=== PATIENT | female | born 1965 | race Caucasian/White ===

== ENCOUNTER 2019-07-26 16:07 | Inpatient (IN) | payer OTHER ==
[~2019-07-26] VITALS: Ht 165.1 cm; Wt 90.9 kg
[~2019-07-26 16:07] MED LIST: ADVA115A INH; FLUTICASONE INH; LISI10TA15 PO; PRED20TA PO; PROAAER10 IN; SALMETEROL INH; ZITH250T PO
[2019-07-26 16:44] LABS: BASO # 0.1 10^3/uL (0.0-0.2); BASO % 0.6 % (0.0-1.0); EOS # 0.6 10^3/uL (0.0-0.5); EOS % 3.8 % (0.0-3.0); HEMATOCRIT 50.1 % (36.0-47.0); HEMOGLOBIN 16.2 g/dl (12.0-15.5); LYMPH # 4.3 10^3/uL (1.5-5.0); LYMPH % 28.8 % (24.0-44.0); MEAN CORPUSCULAR HEMOGLOBIN 29.7 pg (27.0-33.0); MEAN CORPUSCULAR HGB CONC 32.3 g/dl (32.0-36.5); MEAN CORPUSCULAR VOLUME 91.8 fl (80.0-96.0); MONO # 0.6 10^3/uL (0.0-0.8); MONO % 3.7 % (0.0-5.0); NEUTROPHILS # 9.2 10^3/uL (1.5-8.5); PLATELET COUNT, AUTOMATED 408 10^3/uL (150-450); RED BLOOD COUNT 5.46 10^6/uL (4.00-5.40); WHITE BLOOD COUNT 14.9 10^3/uL (4.0-10.0)
[2019-07-26] MEDS: COMBIVENT RESPIMAT 100-20MCG INHALER 4GM INH SCH ×4 (16:54→17:19)
[2019-07-26 16:56] LABS: INR 1.03; PARTIAL THROMBOPLASTIN TIME 24.9 SECONDS (25.0-38.4); PROTHROMBIN TIME 13.2 SECONDS (11.8-14.0)
[2019-07-26 17:00] LABS: D-DIMER QUANT 325.56 ng/ml (<500)
[2019-07-26 17:10] LABS: ALT/SGPT 64 U/L (12-78); BILIRUBIN,TOTAL 0.3 MG/DL (0.2-1.0); BLOOD UREA NITROGEN 9 MG/DL (7-18); C REACTIVE PROTEIN QUANTITATIV < 0.30 MG/DL (0.00-0.30); CALCIUM LEVEL 8.8 MG/DL (8.5-10.1); CARBON DIOXIDE LEVEL 20 MEQ/L (21-32); CHLORIDE LEVEL 106 MEQ/L (98-107); CK-MB VALUE MASS 1.7 NG/ML (<3.6); CPK CREATINE PHOSPHOKINASE 81 U/L (26-192); FERRITIN 164 NG/ML (8-252); GLOMERULAR FILTRATION RATE > 60.0 (>51); GLUCOSE, FASTING 208 MG/DL (70-100); LDH LACTATE DEHYDROGENASE 279 U/L (84-246); POTASSIUM SERUM 4.7 MEQ/L (3.5-5.1); SODIUM LEVEL 137 MEQ/L (136-145); TOTAL PROTEIN 7.6 GM/DL (6.4-8.2); TROPONIN I 0.14 NG/ML (< 0.10)
--- NOTE | 2019-07-26 17:18 | REP ---
Portable chest x-ray: Single view. History: Tavares virus evaluation. Comparison chest x-ray: August 02, 2014. Findings: Monitoring electrodes overlie the chest along with oxygen delivery tubing. The lungs are symmetrically aerated. No focal infiltrate is appreciated. Heart is not enlarged. The pleural angles are sharp. No bony abnormality is seen. Impression: No infiltrate seen. No active cardiopulmonary disease. A negative chest x-ray does not exclude CoVID19 infection. Electronically Signed by William Lynch MD 07/26/2019 05:10 P
[2019-07-26] MEDS ORDERED: ACET-683 PO (17:38)
[2019-07-26] MEDS ORDERED: PROAAER10 INH (17:38)
[2019-07-26] MEDS ORDERED: COUG1LOZ8 MT (17:38)
[2019-07-26] MEDS ORDERED: IBUP200T45 PO (17:38)
[2019-07-26] MEDS ORDERED: TRIA25CR TOP (17:38)
[2019-07-26] MEDS ORDERED: ALBU83IN INH (17:38)
[2019-07-26] MEDS ORDERED: LISI10TA4 PO (17:38)
[2019-07-26] MEDS ORDERED: NS 1,000 ML IV SCH ×2 (17:46→20:00)
--- NOTE | 2019-07-26 18:33 | ECGEPIP ---
[facility] - ED Test Date: 2019-07-26 Pat Name: PHILLIP SULTANA Department: Room: - Gender: Female [employer] Operator: uri : 1965 Requested By: Christina Cortés Order Number: [id number] Reading MD: Christina Cortés Measurements Intervals [place] Rate: 80 P: 41 [place]: 140 QRS: 8 QRSD: 73 T: -9 QT: 348 QTc: 402 Interpretive Statements SINUS RHYTHM SEPTAL MYOCARDIAL INFARCTION, OF INDETERMINATE AGE NONSPECIFIC ST T WAVE CHANGES CW 08/02/[address] T WAVE CHANGES Q NOW IN LEAD III Electronically Signed on 07-26-2019 18:33:20 EDT by Christina Cortés
[2019-07-26] MEDS ORDERED: IBUPROFEN 400 MG TAB PO PRN (19:15)
[2019-07-26] MEDS ORDERED: ALBUTEROL SULFATE 2.5 MG/0.5 ML INH NEB SOLN NEB PRN (19:15)
[2019-07-26] MEDS ORDERED: guaiFENesin DM LIQ 10ML UD PO PRN (19:15)
[2019-07-26] MEDS ORDERED: ACETAMINOPHEN 500 MG TAB PO PRN (19:15)
[2019-07-26] MEDS ORDERED: cefTRIAXone SOD 1 GM in D5W MINI-BAG PLUS 50 ML IV SCH (20:00)
[2019-07-26] MEDS: IPRATROPIUM 0.02% SOLN 0.5MG/2.5 ML NEB NEB SCH ×2 (21:46→23:54)
[2019-07-26 22:00] VITALS: BP 117/85
[2019-07-26] MEDS ORDERED: ENOXAPARIN 40MG/0.4ML SYRINGE (J1650 PER 10MG) SC ONE (22:00)
[2019-07-27] MEDS: methylPREDNISolone INJ 125 MG/2 ML VIAL (J2930) IV SCH ×2 (00:02→07:52)
[2019-07-27 02:00] VITALS: BP 110/86
[2019-07-27] MEDS: IPRATROPIUM 0.02% SOLN 0.5MG/2.5 ML NEB NEB SCH ×2 (02:55→07:21)
[2019-07-27 04:06] VITALS: O2SAT 94
[2019-07-27 06:00] VITALS: BP 120/86
[2019-07-27 06:03] LABS: HEMATOCRIT 46.8 % (36.0-47.0); HEMOGLOBIN 15.6 g/dl (12.0-15.5); MEAN CORPUSCULAR HEMOGLOBIN 29.7 pg (27.0-33.0); MEAN CORPUSCULAR HGB CONC 33.3 g/dl (32.0-36.5); PLATELET COUNT, AUTOMATED 309 10^3/uL (150-450); RED BLOOD COUNT 5.26 10^6/uL (4.00-5.40); WHITE BLOOD COUNT 8.4 10^3/uL (4.0-10.0)
[2019-07-27 06:17] LABS: BLOOD UREA NITROGEN 10 MG/DL (7-18); CALCIUM LEVEL 9.3 MG/DL (8.5-10.1); CARBON DIOXIDE LEVEL 23 MEQ/L (21-32); CHLORIDE LEVEL 110 MEQ/L (98-107); CREATININE FOR GFR 0.64 MG/DL (0.55-1.30); GLOMERULAR FILTRATION RATE > 60.0 (>51); GLUCOSE, FASTING 137 MG/DL (70-100); POTASSIUM SERUM 4.5 MEQ/L (3.5-5.1); SODIUM LEVEL 140 MEQ/L (136-145)
[2019-07-27 06:18] LABS: CHOLESTEROL RISK RATIO 4.265 (<5)
[2019-07-27 06:27] LABS: HEMOGLOBIN A1c 5.7 %
--- NOTE | 2019-07-27 07:21 | HPE ---
DATE OF ADMISSION: 07/26/2019 CHIEF COMPLAINT: Shortness of breath. HISTORY OF PRESENTING ILLNESS: This is a 53-year-old female with history of chronic obstructive pulmonary disease (COPD). Prior admission was 08/02/2014. Not oxygen or steroid dependent. Presents to emergency room with 2-day history of shortness of breath despite using her puffer nebulizers every 4-6 hours for the past 2 days. She otherwise denies any fever. Has a cough with clear sputum. No chills, nausea, vomiting, diarrhea, abdominal pain, chest pain, pressure, tightness, lightheadedness, dizziness. Denies any headache, changes in vision, sore throat, or sick contact. Patient has not had any recent travel. Denies any muscle, joint pains. She does have a pinched nerve in the cervical spine with worsening radicular pain to the right arm for the past 1 month with decrease in strength and dropping things with her fingers. She has had no change in appetite, weight gain, weight loss, and presents for evaluation. In the emergency room (ER), she was afebrile at 97 with wheezing and decreased breath sounds, prolonged expirations, requiring nebulizer treatment. She was in tripod positioning, and respiratory rate was 40 with 3-4 word dyspnea. She was given 4 liters oxygen by the ambulance and was saturating 94-98%. She otherwise denies any dysuria, urgency, frequency, fever, chills, flank pain. No pets at home. PAST MEDICAL HISTORY: 1. COPD. 2. Hypertension. PAST SURGICAL HISTORY: 1. (C) section. 2. Tonsillectomy. ALLERGIES: No known drug allergies. HOME MEDICATIONS: - albuterol ProAir HFA two puffs inhaled four times a day - triamcinolone topically as needed - cough drops as needed - acetaminophen 1 gram every 6 hours as needed - ibuprofen 200 mg tablet, 400 mg every 6 hours as needed - lisinopril 10 mg daily SOCIAL HISTORY: Lives alone. Previously worked as a surgical assistant. Her daughter, Ciara, is her health care proxy, . Patient does not want to be resuscitated and did not want any cardiopulmonary resuscitation (CPR) or chest compressions, intubation, or mechanical ventilation. She is DO NOT RESUSCITATE, DO NOT INTUBATE. Denies alcohol or recreational drug use. Previously smoked two packs per day for several years, down to five cigarettes a day. FAMILY HISTORY: Father , age 31, due to a fire. Mother alive, age 72, coronary artery disease (CAD), myocardial infarction (ND), hypertension, stroke. One brother, age 58. One sister alive with lung cancer with metastatic lesions to the brain. REVIEW OF SYSTEMS: Per history of presenting illness (HPI). 12-point system otherwise negative. PHYSICAL EXAMINATION: Temperature 97, pulse 84, respiratory rate 38, blood pressure 120/90, 94% on 4 liters nasal cannula. GENERALLY: Patient is in tripod position with moderate respiratory distress, 3- 5 word conversational dyspnea. No jugular venous distention (JVD). No thyromegaly. No cervical lymphadenopathy. Dry mucous membranes. LUNGS: Diminished breath sounds. Prolonged expiration. Bilateral expiratory wheezing. HEART: S1, S2, sinus tachycardia. ABDOMEN: Is soft, nontender, and nondistended. EXTREMITIES: No cyanosis, clubbing, or pitting edema. White count 14.9, hemoglobin 16, hematocrit 50, platelet count of 408, 62% neutrophils. Sodium 137, potassium 4.7, chloride 106, bicarbonate 20, BUN 9, creatinine 0.9, glucose of 208, lactic acid 3.8. Repeat lactic acid pending. Calcium 8.8, ferritin 164, total bilirubin 0.3, AST 87, ALT 64, alkaline phosphatase 105, LDH 279, total CK 81, MB fraction 1.7, troponin 0.14, CRP less than 0.3, total protein 7.6, albumin of 4. Procalcitonin is pending. Blood culture pending. Respiratory panel negative. Sputum culture pending. EKG: Sinus rhythm, ventricular rate of 80, septal ND age indeterminate, VT interval 140, QRS 73, QT 348, QTc 384. Chest x-ray 07/26/2019: No infiltrate. No acute cardiopulmonary disease. ASSESSMENT AND PLAN: 53-year-old female, DO NOT RESUSCITATE, DO NOT INTUBATE according to her wishes. Health care proxy is her daughterCiara, phone number [phone]. Presents to emergency room with 2-day history of worsening shortness of breath unalleviated by inhalers at home every 4 hours. No fever with a cough productive of clear sputum without chills, nausea, vomiting, diarrhea, headaches, changes in vision, or sore throat. Patient was found to be in moderate distress, tachycardic, tachypneic, with bilateral wheezing, decreased air entry, and admitted for chronic obstructive pulmonary disease exacerbation. Patient had a slight white count. Chest x-ray is negative. Sputum culture is pending. Respiratory panel is negative. COVID-19 negative. 1. Chronic obstructive pulmonary disease exacerbation. Currently on intravenous (IV) Solu-Medrol 80 IV every 8 hourly, nebulizers every 4 hours and every 1 hour as needed, ceftriaxone intravenously. Await sputum culture. No acute infiltrate on the chest x-ray. Keep oxygen saturations at 88-92%. Cycle cardiac markers. 2. Troponin leak with abnormal EKG. Troponin leak is most likely due to COPD and possible pulmonary hypertension with abnormal EKG showing septal changes, age indeterminate. Reasonable to continue with smoking cessation counseling and if patient develops chest pain, to obtain an echocardiogram to rule out septal wall motion abnormalities. Cycle cardiac markers every 8 hourly for now. 3. Hypertension, controlled. Patient had lactic acidosis and required IV fluids initially. She will be kept on lisinopril with holding parameters for systolic pressure less than 120. 4. Right hand weakness. Patient has history of cervical radiculopathy. May benefit from MRI of the cervical spine as outpatient. If worsening symptoms, may consider doing inpatient evaluation. 5. Active tobacco abuse. Patient has been counseled against smoking. Says that she only smokes about 5-10 cigarettes a day now. 6. Obesity. Body mass index (BMI) of 33.4. Check for metabolic syndrome. Chest A1c in the morning and lipid panel. Continue on lisinopril for blood pressure, providing that her mean arterial pressure (MAP) remains above 70. 7. Deep venous thrombosis (DVT) prophylaxis. With Lovenox. CODE STATUS: Patient says she does not want chest compressions, intubation, or mechanical invasion. DO NOT RESUSCITATE, DO NOT INTUBATE. Health care proxy is Ciara, her daughter, . [facility]Dutch
[2019-07-27] MEDS: PANTOPRAZOLE 40MG TAB (PROTONIX) PO SCH (07:52)
[2019-07-27] MEDS: lisinopriL 10 MG TAB PO SCH (07:56)
[2019-07-27 08:00] VITALS: O2SAT 95
[2019-07-27] MEDS ORDERED: ENOXAPARIN 40MG/0.4ML SYRINGE (J1650 PER 10MG) SC SCH (09:00)
[2019-07-27] MEDS: IPRATROPIUM 0.5MG/ALBUTEROL 2.5MG INH SOL UD 3ML (DUONEB)(J7620) NEB SCH ×4 (11:06→23:06)
--- NOTE | 2019-07-27 11:52 | IPNPDOC ---
Text Note Date of Service The patient was seen on 07/27/19. NOTE SUBJECTIVE: Patient seen and examined this morning at bedside. She is a 53-year- old female admitted overnight secondary to a COPD exacerbation. She states that the past 2 days she had has had worsening wheezing and shortness of breath using her rescue inhaler every 4-6 hours without much help. She does not follow with a looseleaf binder coverer and is not on any maintenance therapy. She states she has been trying to cut back on her smoking and is down to less than 5 per day. She denies any fever, chills, chest pain, abdominal pain, nausea, vomiting, recent sick contacts. OBJECTIVE: PHYSICAL EXAM: Vitals: (see below) General: No acute distress, sitting up in bed. HEENT: Normocephalic, atraumatic. EOMI. No scleral icterus. Moist mucous membranes. No pharyngeal erythema or uvular deviation. Neck: No JVD, lymphadenopathy, or thyromegaly. Cardiac: RRR, Normal S1 and S2, No murmurs, gallops, rubs. Pulm: Clear to auscultation b/l. Symmetric thorax. Extensive inspiratory and expiratory wheezes appreciated throughout lung pop, no crackles, rhonchi. Abd: Bowel Sounds present. Abdomen is soft, non-tender, non-distended. No guarding, rebound tenderness, or rigidity. Ext: No edema or cyanosis Neuro: No focal neuro deficits Psych: Normal mood and affect. LABORATORY DATA, MICROBIOLOGY: Please see below. IMAGING STUDIES: ASSESSMENT AND PLAN: #. COPD exacerbation Keep oxygen titrated to 80-92%, added DuoNeb treatments scheduled every 4 hours, discontinuing Rocephin based on her history, physical, lab work, and chest x-ray there are no signs of infection, changed IV steroids to 40 mg every 8 hours from 80 mg. If she continues to improve may be able to change to oral steroids tomorrow. Should be discharged home with follow-up to a pulmonology office if her PCP is uncomfortable with further management as well as a maintenance inhaler #. Hypertension Controlled, continue home lisinopril with holding parameters #. Right hand weakness 2/2 cervical radiculopathy Stable, no need for intervention at this time unless symptoms worsen, okay to follow up outpatient as needed. #. Tobacco use disorder Patient uninterested in nicotine replacement therapy as she feels like this makes her want to smoke more, she says she is continuing to quit and cut down on smoking and is at less than 5 cigarettes per day. #. Polycythemia Given patient's body habitus there may be underlying RUBEN versus obesity hypoventilation syndrome. Follow up outpatient for further workup. #. Obesity Complicating care and management, A1c of 5.7 significant for borderline impaired fasting glucose. DVT prophylaxis: Lovenox CODE STATUS: DNR/DNI VS,Fishbone, I+O VS, Fishbone, I+O Laboratory Tests 07/26/19 16:31 07/27/19 05:28 Vital Signs Date Time Temp Pulse Resp B/P (MAP) Pulse Ox O2 Delivery O2 Flow Rate FiO2 07/27/19 08:00 95 Room Air 07/27/19 07:56 138/90 07/27/19 06:00 98.0 77 19 07/26/19 18:30 4.0 I&O- Last 24 Hours up to 6 AM 07/27/19 06:00 Intake Total 2800 ml Balance 2800 ml GME ATTESTATION GME ATTESTATION My faculty preceptor for this patient encounter was physically present during the encounter and was fully available. All aspects of the patient interview, examination, medical decision making process, and medical care plan development were reviewed and approved by the faculty preceptor. The faculty preceptor is aware and concurs with the plan as stated in the body of this note and will attest to such by his/her cosignature. ROBBY SEVILLA DO Jul 27, 2019 11:52
[2019-07-27 14:00] VITALS: BP 115/82
[2019-07-27] MEDS: methylPREDNISolone INJ 40 MG/1 ML VIAL (J2920) IV SCH (16:26)
[2019-07-27] MEDS: ENOXAPARIN 40MG/0.4ML SYRINGE (J1650 PER 10MG) SC SCH (21:15)
[2019-07-27 22:00] VITALS: BP 117/81
[2019-07-28] MEDS: methylPREDNISolone INJ 40 MG/1 ML VIAL (J2920) IV SCH ×3 (00:01→15:28)
[2019-07-28] MEDS: IPRATROPIUM 0.5MG/ALBUTEROL 2.5MG INH SOL UD 3ML (DUONEB)(J7620) NEB SCH ×4 (03:00→19:15)
[2019-07-28 05:58] VITALS: O2SAT 92
[2019-07-28 06:00] VITALS: BP 134/86
[2019-07-28 06:51] LABS: HEMOGLOBIN 14.6 g/dl (12.0-15.5); MEAN CORPUSCULAR HEMOGLOBIN 30.9 pg (27.0-33.0); MEAN CORPUSCULAR VOLUME 91.1 fl (80.0-96.0); PLATELET COUNT, AUTOMATED 316 10^3/uL (150-450); RED BLOOD COUNT 4.72 10^6/uL (4.00-5.40)
[2019-07-28 07:19] LABS: BLOOD UREA NITROGEN 17 MG/DL (7-18); CALCIUM LEVEL 9.3 MG/DL (8.5-10.1); CARBON DIOXIDE LEVEL 23 MEQ/L (21-32); CHLORIDE LEVEL 109 MEQ/L (98-107); CREATININE FOR GFR 0.83 MG/DL (0.55-1.30); GLOMERULAR FILTRATION RATE > 60.0 (>51); GLUCOSE, FASTING 144 MG/DL (70-100); POTASSIUM SERUM 4.2 MEQ/L (3.5-5.1); SODIUM LEVEL 142 MEQ/L (136-145)
[2019-07-28 08:00] VITALS: O2SAT 93
[2019-07-28] MEDS: PANTOPRAZOLE 40MG TAB (PROTONIX) PO SCH (08:00)
[2019-07-28] MEDS: lisinopriL 10 MG TAB PO SCH (08:02)
[2019-07-28] MEDS ORDERED: ADVA230A INH (10:45)
[2019-07-28] MEDS ORDERED: PROAAER10 INH (10:45)
[2019-07-28 14:00] VITALS: BP 117/71
--- NOTE | 2019-07-28 14:30 | IPNPDOC ---
Text Note Date of Service The patient was seen on 07/28/19. NOTE SUBJECTIVE: 53 year old female admitted for COPD exacerbation. Patient seen and examined this morning at bedside, no acute events overnight. She denies any fever, chills, chest pain, worsening shortness of breath, cough, abdominal pain, nausea, vomiting. She feels significantly better today and required no oxygen overnight. OBJECTIVE: PHYSICAL EXAM: Vitals: (see below) General: No acute distress, sitting up in bed. HEENT: Normocephalic, atraumatic. EOMI. No scleral icterus. Moist mucous membranes. No pharyngeal erythema or uvular deviation. Neck: No JVD, lymphadenopathy, or thyromegaly. Cardiac: RRR, Normal S1 and S2, No murmurs, gallops, rubs. Pulm: Clear to auscultation b/l. Symmetric thorax. Faint end expiratory wheezes, no inspiratory wheezes, no crackles, rhonchi. Abd: Bowel Sounds present. Abdomen is soft, non-tender, non-distended. No guarding, rebound tenderness, or rigidity. Ext: No edema or cyanosis Neuro: No focal neuro deficits Psych: Normal mood and affect. LABORATORY DATA, MICROBIOLOGY: Please see below. IMAGING STUDIES: ASSESSMENT AND PLAN: #. COPD exacerbation Oxygen requirements decreasing, patient doing well on room air, changed n ebulizer treatments to every 6 hours, added Advair inhaler. Will DC IV steroids and start by mouth steroids tomorrow. #. Hypertension Controlled, continue home lisinopril with holding parameters #. Right hand weakness 2/2 cervical radiculopathy Stable, no need for intervention at this time unless symptoms worsen, okay to follow up outpatient as needed. #. Tobacco use disorder Patient uninterested in nicotine replacement therapy as she feels like this makes her want to smoke more, she says she is continuing to quit and cut down on smoking and is at less than 5 cigarettes per day. #. Obesity Complicating care and management, A1c of 5.7 significant for borderline impaired fasting glucose. #. Polycythemia on presentation now resolved - secondary polycythemia adn relative polycythemia -due to a combination of hypoxia, COPD exacerbation , smoking. DVT prophylaxis: Lovenox CODE STATUS: DNR/DNI Disposition: Anticipate DC tomorrow. VS,Fishbone, I+O VS, Fishbone, I+O Laboratory Tests 07/28/19 05:59 Vital Signs Date Time Temp Pulse Resp B/P (MAP) Pulse Ox O2 Delivery O2 Flow Rate FiO2 07/28/19 14:00 97.6 83 18 117/71 (86) 94 Room Air 07/26/19 18:30 4.0 I&O- Last 24 Hours up to 6 AM 07/28/19 06:00 Intake Total 1600 ml Output Total 1050 ml Balance 550 ml GME ATTESTATION GME ATTESTATION My faculty preceptor for this patient encounter was physically present during the encounter and was fully available. All aspects of the patient interview, examination, medical decision making process, and medical care plan development were reviewed and approved by the faculty preceptor. The faculty preceptor is aware and concurs with the plan as stated in the body of this note and will attest to such by his/her cosignature. ATTENDING NOTE I have independently interviewed and examined the patient at the bedside, and agree with the aforementioned management plans and physical findings as documented by my Resident Physician. ROBBY SEVILLA DO Jul 28, 2019 14:30 SHAHEED ZAPIEN MD Jul 30, 2019 11:48
[2019-07-28] MEDS: ADVAIR HFA 230/21MCG INHALER INH SCH ×2 (14:57→19:15)
[2019-07-28] MEDS: ENOXAPARIN 40MG/0.4ML SYRINGE (J1650 PER 10MG) SC SCH (20:47)
[2019-07-28 22:00] VITALS: BP 132/79; O2SAT 93
[2019-07-29] MEDS: IPRATROPIUM 0.5MG/ALBUTEROL 2.5MG INH SOL UD 3ML (DUONEB)(J7620) NEB SCH ×2 (01:28→07:25)
[2019-07-29 06:00] VITALS: BP 137/89
[2019-07-29 06:48] LABS: HEMATOCRIT 42.9 % (36.0-47.0); MEAN CORPUSCULAR HEMOGLOBIN 29.9 pg (27.0-33.0); MEAN CORPUSCULAR HGB CONC 32.6 g/dl (32.0-36.5); MEAN CORPUSCULAR VOLUME 91.5 fl (80.0-96.0); PLATELET COUNT, AUTOMATED 303 10^3/uL (150-450); RED BLOOD COUNT 4.69 10^6/uL (4.00-5.40); WHITE BLOOD COUNT 18.5 10^3/uL (4.0-10.0)
[2019-07-29 07:18] LABS: BLOOD UREA NITROGEN 16 MG/DL (7-18); CALCIUM LEVEL 9.1 MG/DL (8.5-10.1); CARBON DIOXIDE LEVEL 26 MEQ/L (21-32); CHLORIDE LEVEL 106 MEQ/L (98-107); CREATININE FOR GFR 0.73 MG/DL (0.55-1.30); GLOMERULAR FILTRATION RATE > 60.0 (>51); GLUCOSE, FASTING 84 MG/DL (70-100); POTASSIUM SERUM 3.9 MEQ/L (3.5-5.1); SODIUM LEVEL 140 MEQ/L (136-145)
[2019-07-29] MEDS: ADVAIR HFA 230/21MCG INHALER INH SCH (07:25)
[2019-07-29] MEDS: PANTOPRAZOLE 40MG TAB (PROTONIX) PO SCH (08:44)
[2019-07-29 08:45] VITALS: BP 139/93
[2019-07-29] MEDS: lisinopriL 10 MG TAB PO SCH (08:45)
[2019-07-29] MEDS ORDERED: PRED20TA PO (08:49)
--- NOTE | 2019-07-29 08:50 | DS.PDOC ---
Discharge Summary General Date of Admission Jul 26, 2019 at 19:08 Date of Discharge 07/29/2019 Attending Physician: SHAHEED ZAPIEN MD Discharge Summary PROCEDURES PERFORMED DURING STAY: none. DISCHARGE DIAGNOSES: 1. COPD exacerbation 2. Hypertension 3. Hypercholesterolemia 4. Obesity 5. Tobacco use 6. Cervical radiculopathy with right arm and hand weakness COMPLICATIONS/CHIEF COMPLAINT: Shortness of breath HISTORY OF PRESENT ILLNESS/HOSPITAL COURSE: 53-year-old female presented to ED with 2-day history of shortness of breath despite using her rescue inhaler every 4-6 hours for the past 2 days with associated cough productive of clear sputum after being out of her maintenance inhaler medication for the past month. She states her SOB became so severe she called EMS. In the ED, she was afebrile with wheezing, tachypnea, conversational dyspnea, decreased breath sounds, prolonged expirations, and tripoding requiring nebulizer therapy. 4 blood cultures, respiratory panel, and COVID19 PCR were all negative. Based on her history and physical exam she was admitted for a COPD exacerbation and started on steroids, rocephin empirically, and oxygen as needed with MDI inhaler treatments. On day 2 of hospitalization her oxygen requirements had decreased, rocephin was discontinued and she was started on nebulizer treatments with ongoing IV steroids. By day 3 she was feeling significantly better so nebulizer therapy was lengthened, she was off oxygen, and she was switched to oral steroids. On day of discharge her lungs were clear, patient felt comfortable to go leave, and she was sent home with LABA/ICS, Wixela, as a maintenance inhaler along with 3 more days of oral steroids to finish her course. DISCHARGE MEDICATIONS: Please see below. ALLERGIES: Please see below. Vitals: (see below) General: No acute distress, sitting up in bed. HEENT: Normocephalic, atraumatic. EOMI. No scleral icterus. Moist mucous membranes. No pharyngeal erythema or uvular deviation. Neck: No JVD, lymphadenopathy, or thyromegaly. Cardiac: RRR, Normal S1 and S2, No murmurs, gallops, rubs. Pulm: Clear to auscultation b/l. Symmetric thorax. no wheezes, crackles, or rhonchi. Abd: Bowel Sounds present. Abdomen is soft, non-tender, non-distended. No guarding, rebound tenderness, or rigidity. Ext: No edema or cyanosis Neuro: No focal neuro deficits Psych: Normal mood and affect. LABORATORY DATA: Please see below. IMAGIN07/26/2019 chest x-ray: No infiltrate seen. No active cardiopulmonary disease. PROGNOSIS: good ACTIVITY: [As tolerated]. DIET: As tolerated DISCHARGE PLAN: home DISCHARGE INSTRUCTIONS: 1. Please follow up with PCP in the next 1-2 weeks. 2. Please return to hospital if symptoms worsen. 3. Please complete steroid regimen. DISCHARGE CONDITION: [Stable]. TIME SPENT ON DISCHARGE: 35 minutes. Vital Signs/I&Os Vital Signs Date Time Temp Pulse Resp B/P (MAP) Pulse Ox O2 Delivery O2 Flow Rate FiO2 07/29/19 08:45 139/93 07/29/19 06:00 98.2 98 21 97 Room Air 07/26/19 18:30 4.0 I&O- Last 24 Hours up to 6 AM 07/29/19 06:00 Intake Total 1860 ml Balance 1860 ml Laboratory Data Labs 24H Laboratory Tests 2 07/29/19 06:06: Nucleated Red Blood Cells % (auto) 0.0, Anion Gap 8, Glomerular Filtration Rate > 60.0, Calcium Level 9.1 CBC/BMP Laboratory Tests 07/29/19 06:06 Microbiology Microbiology 07/26/19 Blood Culture - Preliminary, Resulted No Growth after 48 hours. All Specime... 07/26/19 Blood Culture - Preliminary, Resulted No Growth after 48 hours. All Specime... 07/26/19 Blood Culture - Preliminary, Resulted No Growth after 48 hours. All Specime... 07/26/19 Respiratory Virus Panel (PCR) ([facility]) - Final, Complete 07/26/19 Blood Culture - Preliminary, Resulted No Growth after 48 hours. All Specime... Discharge Medications Scheduled Fluticasone Propion/Salmeterol (Wixela 250-50 Inhub) 1 Each Blst.w.dev, 1 PUFF IH BID Lisinopril (Lisinopril) 10 Mg Tablet, 10 MG PO DAILY, (Reported) Prednisone (Prednisone) 20 Mg Tablet, 2 TAB PO DAILY Scheduled PRN Acetaminophen (Acetaminophen) 500 Mg Tablet, 1,000 MG PO Q6H PRN for PAIN, (Reported) Albuterol Sulf (Albuterol Sulfate) 2.5 Mg/3 Ml Vial.neb, 2.5 MG INH QID PRN for SOB/WHEEZING, (Reported) Albuterol Sulfate (Proair Hfa) 8.5 Gm Hfa.aer.ad, 2 PUFF INH QID PRN for SOB/WHEEZING Ibuprofen (Ibu-200) 200 Mg Tablet, 400 MG PO Q6H PRN for PAIN, (Reported) Menthol (Cough Drops) 7.6 Mg Lozenge, 7.6 MG MT for COUGH, (Reported) Triamcinolone Acet (Triamcinolone Acetonide 0.025% Crm) 80 Gm Cream..g., 1 APLCT TOP BID PRN for RASH, (Reported) APPLY TO RIGHT FOOT PRN Allergies Coded Allergies: No Known Allergies (Unverified , 08/02/14) GME ATTESTATION GME ATTESTATION My faculty preceptor for this patient encounter was physically present during the encounter and was fully available. All aspects of the patient interview, examination, medical decision making process, and medical care plan development were reviewed and approved by the faculty preceptor. The faculty preceptor is aware and concurs with the plan as stated in the body of this note and will attest to such by his/her cosignature. ATTENDING NOTE I have independently interviewed and examined the patient at the bedside, and agree with the aforementioned management plans and physical findings as documented by my Resident Physician. I have personally spent 35 minutes in counselling the patient and coordinating his discharge. ROBBY SEVILLA DO Jul 29, 2019 08:50 SHAHEED ZAPIEN MD Jul 30, 2019 11:58
[2019-07-29 09:00] VITALS: O2SAT 96
[2019-07-29] MEDS ORDERED: predniSONE 20 MG TAB PO SCH (09:00)
[2019-07-29] MEDS ORDERED: FLUT1BLS2 IH (09:17)
== END 2019-07-29 11:13 | disposition home or self-care (01) | DRG 140 ==
LOC: EDBD 16:07 → M ED 16:07 → M ED INP 19:08 → ENRESERVTM 19:54 → ENRESERVDT 19:54 → M MSPAV 20:30
PROVIDERS: ADMIT General Practice; ATTEND Internal Medicine Nephrology
DX: J44.1 Chronic obstructive pulmonary disease with (acute) exacerbation (principal); E87.2 Acidosis; D75.1 Secondary polycythemia; I10 Essential (primary) hypertension; E66.9 Obesity, unspecified; Z68.33 Body mass index [BMI] 33.0-33.9, adult; E78.00 Pure hypercholesterolemia, unspecified; F17.210 Nicotine dependence, cigarettes, uncomplicated; Z79.899 Other long term (current) drug therapy; Z66 Do not resuscitate